=== PATIENT | female | born 2000 | race Caucasian/White ===

== ENCOUNTER 2022-06-02 12:35 | Emergency (ER) | payer OTHER ==
[~2022-06-02] VITALS: Ht 172.7 cm; Wt 65.8 kg
[2022-06-02] MEDS ORDERED: CYCLOBENZAPRINE10 MG PO (12:56)
== END 2022-06-02 13:38 | disposition home or self-care (01) ==
LOC: ED 12:35
DX: S81.012A Laceration without foreign body, left knee, initial encounter (principal); W50.0XXA Accidental hit or strike by another person, initial encounter; Z79.899 Other long term (current) drug therapy
CPT/HCPCS: 12002; 99283-25